=== PATIENT | female | born 1995 | race Caucasian/White ===

== ENCOUNTER 2022-02-04 11:58 | Emergency (ER) | payer OTHER ==
[~2022-02-04] VITALS: Ht 165.1 cm; Wt 67.1 kg
--- NOTE | 2022-02-04 12:10 | NUR ---
RECEVED PT 26 YRS FEMALE CAME FROM [facility] HAD SYNCOPY AND MADHURI Awake and alert fallow command respiration spont and easy
--- NOTE | 2022-02-04 12:38 | NUR ---
(MOTHER) KARTIK BROWN [phone]
--- NOTE | 2022-02-04 12:40 | NUR ---
UA SENT TO LAB
--- NOTE | 2022-02-04 12:49 | NUR ---
LAB DROW BY LAB TACH
[2022-02-04 13:14] LABS: BASOPHILS % (AUTO) 0.7 % (0.0-2.0); EOSINOPHILS % (AUTO) 3.5 % (0.0-6.0); HEMATOCRIT 40 % (33-45); HEMOGLOBIN 12.7 g/dL (11.5-14.8); LYMPHOCYTES # (AUTO) 2.1 K/uL (0.8-4.8); LYMPHOCYTES % (AUTO) 37.8 % (20.0-44.0); MEAN CORPUSCULAR HGB CONC 32 g/dl (31.0-36.0); MEAN CORPUSCULAR VOLUME 83 fL (82-100); MONOCYTES # (AUTO) 0.6 K/uL (0.1-1.30); MONOCYTES % (AUTO) 10.1 % (2.0-12.0); NEUTROPHILS # (AUTO) 2.6 K/uL (1.8-8.9); NEUTROPHILS % (AUTO) 47.9 % (43.0-81.0); PLATELET COUNT (AUTO) 297 K/uL (150-450); RED BLOOD CELL COUNT(AUTO) 4.78 MIL/uL (4.0-5.2); WHITE BLOOD COUNT (AUTO) 5.5 K/uL (4.3-11.0)
[2022-02-04 13:31] LABS: CALCIUM, SERUM 8.6 mg/dL (8.5-10.1); CARBON DIOXIDE 24 mmol/L (21-32); CHLORIDE 106 mmol/L (98-107); CREATININE 0.9 mg/dL (0.6-1.3); GLUCOSE 76 mg/dL (74-106); POTASSIUM 3.9 mmol/L (3.5-5.1); SODIUM SERUM 141 mmol/L (136-145); UREA NITROGEN, BLOOD 7 mg/dL (7-18)
--- NOTE | 2022-02-04 13:47 | NUR ---
RESTING AT THIS TIME
[2022-02-04] MEDS ORDERED: LORAZEPAM 0.5 MG TABLET PO ONE (14:00)
[2022-02-04] MEDS ORDERED: LORAZEPAM 0.5 MG TABLET ONE (14:06)
--- NOTE | 2022-02-04 14:35 | NUR ---
OPT FULLY awake and alert d/c instraction given to pt fully andferblized understood
[2022-02-04 14:52] VITALS: BP 111/72
== END 2022-02-04 14:53 | disposition home or self-care (01) ==
LOC: ER 12:00
DX: R55 Syncope and collapse (principal); R42 Dizziness and giddiness; G43.909 Migraine, unspecified, not intractable, without status migrainosus; J45.909 Unspecified asthma, uncomplicated; Z88.8 Allergy status to other drugs, medicaments and biological substances
CPT/HCPCS: 36415; 80048-TC; 84484-TC; 84703-TC; 85025-TC